=== PATIENT | female | born 1960 | race Caucasian/White ===

== ENCOUNTER 2017-04-13 12:26 | Inpatient (IN) | payer OTHER, MEDICARE ==
[~2017-04-13] VITALS: Ht 172.7 cm; Wt 75.4 kg
[~2017-04-13 12:26] MED LIST: ACCURETIC 25 MG1 TAB PO; DAYPRO600 M1 PO; EPA FISH OIL1000 MG PO; FISH OIL 1,0001 EAC4 PO; MEDROL DOSEPAK4 MG PO; METOPROLOL TAR100 M1 PO; METOPROLOL50 MG PO; NORVASC10 MG PO; OMEPRAZOLE40 MG PO; POTASSIUM99 M3 PO; PRILOSEC20 MG PO; PROAIR HFA8.5 GM INH; QUINAPRIL/HCTZ; QUINAPRIL40 MG PO; ROBAXIN750 MG PO; VICODIN ES 7501 TAB PO; VITAMIN D31000 IU PO; ZITHROMAX Z PA250 MG PO
[2017-04-13 12:46] LABS: BASO # 0.1 10*3/uL (0.0-0.1); BASO % 0.8 % (0.0-1.0); EOS # 0.1 10*3/uL (0.0-0.4); EOS % 1.1 % (1.0-4.0); HEMATOCRIT 48.4 % (37.0-47.0); HEMOGLOBIN 17.4 g/dl (12.0-16.0); LYMPH # 3.3 10*3/uL (1.3-4.4); LYMPH % 25.8 % (27.0-41.0); MEAN CELL VOLUME 88.3 fl (81.0-99.0); MEAN CORPUSCULAR HGB 31.8 pg (27.0-31.0); MEAN PLATELET VOLUME 9.7 fl (9.6-12.3); MONO % 7.8 % (3.0-9.0); NEUT # 8.1 10*3/uL (2.3-7.9); NEUT % 64.1 % (47.0-73.0); PLATELET COUNT AUTOMATED 238 10*3/uL (130-400); RED BLOOD COUNT 5.48 10*6/uL (4.10-5.10); RED CELL DISTRI WIDTH 12.2 % (0-14.5); WHITE BLOOD COUNT 12.6 10*3/uL (4.8-10.8)
[2017-04-13 12:50] VITALS: BP 163/61
[2017-04-13 12:56] LABS: ACT PARTIAL THROMBO TIME 25.7 SECONDS (20.8-31.5)
[2017-04-13 13:00] VITALS: BP 150/67
[2017-04-13 13:05] LABS: ALBUMIN 3.8 gm/dl (3.1-4.5); ALKALINE PHOSPHATASE 84 U/L (45-117); BUN 11 mg/dl (7-24); CHLORIDE 98 mmol/L (98-107); CREATININE 0.93 mg/dL (0.55-1.02); MAGNESIUM 1.5 mg/dL (1.5-2.1); POTASSIUM 3.5 mmol/L (3.5-5.1); SGOT/AST 24 IU/L (3-35); SGPT/ALT 33 U/L (12-78); SODIUM 133 mmol/L (136-145); TOTAL PROTEIN 7.3 gm/dL (6.4-8.2)
[2017-04-13 13:06] LABS: TROPONIN I 0.024 ng/ml (<0.045)
--- NOTE | 2017-04-13 14:35 | NUR ---
A 57, admitted to , under the services of RICH Avalos DO with a diagnosis of CHEST PAIN R/O AR Chief complaint is CHEST PAIN AT WORK WITH NAUSEA AND DIAPHORESIS. Patient arrived via stretcher from ER. Monitor applied. Initial assessment completed. Vital signs taken and recorded. RICH AVALOS DO notified of admission to the unit. Orders received. See assessment for past medical history, medications and allergies. Patient and/or family oriented to unit. [facility] visitation policy reviewed. GRUPO LAL
[2017-04-13] MEDS ORDERED: FISH OIL 1,0001 EAC4 PO (14:44)
[2017-04-13] MEDS ORDERED: CALCIUM CARBON600 M4 PO (14:50)
--- NOTE | 2017-04-13 15:40 | NUR ---
I notified Dr. Abarca resident with Dr. Jo that Dr. Owens had cancelled order for stress test, if they would like to reorder it. States he will review pt chart and discussed with Dr. Jo first.
[2017-04-13 16:00] VITALS: BP 152/61
--- NOTE | 2017-04-13 19:00 | NUR ---
PT ASSESSED FOR A PRN BREATHING TX. PT LUNGS ARE CLEAR. SHE WAS TOLD TO CALL RESPIRATORY IF SHE EVER FEELS SOB OR WHEEZY.
--- NOTE | 2017-04-13 19:52 | NUR ---
PATIENT RESTING IN BED WITH NO S/S OF DISTRESS. NO NEEDS MADE. BED IN LOWEST POSITION, CALL LIGHT IN REACH
[2017-04-13 20:00] VITALS: BP 138/61
--- NOTE | 2017-04-13 23:04 | NUR ---
24 HR chart check completed.
[2017-04-14] VITALS: BP 141/53
--- NOTE | 2017-04-14 01:52 | NUR ---
PATIENT RESTING IN BED WITH NO S/S OF DISTRESS. BED IN LOWEST POSITION, CALL LIGHT IN REACH
[2017-04-14 06:20] LABS: BASO # 0.1 10*3/uL (0.0-0.1); BASO % 1.3 % (0.0-1.0); EOS # 0.2 10*3/uL (0.0-0.4); HEMATOCRIT 52.7 % (37.0-47.0); HEMOGLOBIN 18.9 g/dl (12.0-16.0); LYMPH # 2.1 10*3/uL (1.3-4.4); LYMPH % 27.3 % (27.0-41.0); MEAN CELL VOLUME 89.8 fl (81.0-99.0); MEAN CORPUSCULAR HGB 32.2 pg (27.0-31.0); MEAN CORPUSCULAR HGB CONC 35.9 g/dl (33.0-37.0); MEAN PLATELET VOLUME 9.5 fl (9.6-12.3); MONO # 0.6 10*3/uL (0.1-1.0); MONO % 7.3 % (3.0-9.0); NEUT # 4.7 10*3/uL (2.3-7.9); NEUT % 60.7 % (47.0-73.0); PLATELET COUNT AUTOMATED 238 10*3/uL (130-400); RED BLOOD COUNT 5.87 10*6/uL (4.10-5.10); RED CELL DISTRI WIDTH 12.2 % (0-14.5); WHITE BLOOD COUNT 7.8 10*3/uL (4.8-10.8)
[2017-04-14 06:49] LABS: ALBUMIN 3.7 gm/dl (3.1-4.5); ALKALINE PHOSPHATASE 90 U/L (45-117); BUN 6 mg/dl (7-24); CHLORIDE 101 mmol/L (98-107); CHOLESTEROL 201 mg/dL (<200); CREATININE 0.71 mg/dL (0.55-1.02); FREE T4 1.08 ng/dl (0.76-1.46); HDL CHOLESTEROL 47 mg/dl (40-60); LDL CHOLESTEROL 116 mg/dL (9-159); MAGNESIUM 1.6 mg/dL (1.5-2.1); PHOSPHOROUS 3.3 mg/dL (2.5-4.9); POTASSIUM 3.7 mmol/L (3.5-5.1); SGOT/AST 27 IU/L (3-35); SGPT/ALT 34 U/L (12-78); SODIUM 138 mmol/L (136-145); TOTAL PROTEIN 7.7 gm/dL (6.4-8.2); TRIGLYCERIDES 191 mg/dl (<150); VLDL CHOLESTEROL 38 mg/dL (6-40)
[2017-04-14 08:00] VITALS: BP 160/65
--- NOTE | 2017-04-14 09:00 | NUR ---
Social Media Coordinator in to talk to patient. Patient states lives at home with . There are few steps in the home. Physician: none at present [facility] [place] [facility] services: none Patient's level of ADLs: INDEPENDENT Patient has working utilities: all working DME: none Follow-up physician's appointment after d/c: will be made by hospitalist nurse director upon discharge Does patient want to access PORTAL?: no Discharge plan discussed with patient, patient lies at home, is independent in adls and ambulation, patient states she will be going back home when able and denies any home needs. RITU GRIMES
[2017-04-14 10:04] LABS: VITAMIN D, 25-HYDROXY 38.2 ng/mL (30-100)
--- NOTE | 2017-04-14 10:14 | NUR ---
INFORMED CONSENT SIGNED FOR CARDIOLYTE STRESS TEST WITH DR. GARCIA. RESTING EKG SINUS BRADYCARDIA. HR 54, BP 124/74. COMPLETED 9:46 OF A STANDARD FADI PROTOCOL COMPLETING :46 OF STAGE IV, 4.2 MPH/16%. PEAK HEART RATE OF 159 ACHIEVED WHICH IS 97% PREDICTED MAXIMUM AND A PEAK BP OF 242/80. TEST TERMINATED D/T FATIGUE. PT C/O SOB. PVC'S AND NONDIAGNOSTIC ST CHANGES NOTED. HAS A GOOD EXERCISE TOLERANCE. LAST RECOVERY HR 87, BP 154/62. WAITING NUCLEAR SCANNING IN STABLE CONDITION.
--- NOTE | 2017-04-14 10:42 | NUR ---
TORADOL GIVEN PER ORDERS FOR C/O HEADACHE. WILL MONITOR.
--- NOTE | 2017-04-14 11:45 | NUR ---
TORADOL EFFECTIVE PER PT.
[2017-04-14 12:00] VITALS: BP 136/72
[2017-04-14 16:00] VITALS: BP 145/72
[2017-04-14] MEDS ORDERED: METOPROLOL TART50 M1 PO (17:10)
[2017-04-14] MEDS ORDERED: HYDR12.5C PO (17:10)
--- NOTE | 2017-04-14 17:45 | NUR ---
CCDIS Discharge instructions reviewed with patient/family. Patient receptive and verbalizes understanding. Follow-up care arranged. Written instructions given to patient/family. JOHN ARAUZ
== END 2017-04-14 17:45 | disposition home or self-care (01) | DRG 313 ==
LOC: ED 12:26 → EDHOLD 13:54 → 4E 13:54 → EDHOLD 14:09 → 4E 14:49
PROVIDERS: Emergency Medicine; Internal Medicine; ADMIT Emergency Medicine
PROC: 4A02XM4 Measurement of Cardiac Total Activity, External Approach (ICD-10-PCS; principal; 2017-04-14)
DX: R07.89 Other chest pain (principal); E87.1 Hypo-osmolality and hyponatremia; I10 Essential (primary) hypertension; E86.0 Dehydration; R73.03 Prediabetes; K21.9 Gastro-esophageal reflux disease without esophagitis; J44.9 Chronic obstructive pulmonary disease, unspecified; Z72.0 Tobacco use; Z79.899 Other long term (current) drug therapy; Z90.710 Acquired absence of both cervix and uterus; Z72.89 Other problems related to lifestyle; Z80.9 Family history of malignant neoplasm, unspecified

== ENCOUNTER → 2017-11-19 | Outpatient (CLI) | payer OTHER, MEDICARE ==
[~2017-11-19] MED LIST changes: +CALCIUM CARBON600 M4 PO; +HYDR12.5C PO; +METOPROLOL TART50 M1 PO
== END | disposition home or self-care (01) ==
LOC: MAMMO 06:46
DX: Z12.31 Encounter for screening mammogram for malignant neoplasm of breast (principal); E78.5 Hyperlipidemia, unspecified

== ENCOUNTER 2019-04-17 08:15 | Emergency (ER) | payer OTHER, MEDICARE ==
[~2019-04-17] VITALS: Ht 170.1 cm; Wt 66.2 kg
== END 2019-04-17 09:19 | disposition home or self-care (01) ==
LOC: ED 08:15
DX: S79.812A Other specified injuries of left hip, initial encounter (principal); J44.9 Chronic obstructive pulmonary disease, unspecified; K21.9 Gastro-esophageal reflux disease without esophagitis; I10 Essential (primary) hypertension; F17.200 Nicotine dependence, unspecified, uncomplicated; Z90.89 Acquired absence of other organs; Z90.710 Acquired absence of both cervix and uterus; Z98.890 Other specified postprocedural states; Z79.899 Other long term (current) drug therapy; W18.30XA Fall on same level, unspecified, initial encounter; Y93.89 Activity, other specified; Y92.098 Other place in other non-institutional residence as the place of occurrence of the external cause; Y99.9 Unspecified external cause status

== ENCOUNTER 2019-05-03 19:49 | Inpatient (IN) | payer OTHER, MEDICARE ==
[~2019-05-03] VITALS: Ht 165.1 cm; Wt 65.5 kg
--- NOTE | ~2019-05-03 | EKG ---
[place], [place] ELECTROCARDIOGRAM REPORT NAME: JOHN SKINNER UNIT #: [id number] ROOM: [facility] DOCTOR: DAMIEN DRAFT REPORT BIRTHDATE: [birth year] [facility] Test Date: 2019-05-03 Test Time: 20:25:07 Pat Name: JOHN SKINNER Department: Room: [facility] Gender: F Delineator: : 1960 Requested By: HARRISON FERRO Order Number: [id number] Reading MD: Delmi Luna MD Measurements Intervals [place] Rate: 84 P: -23 CO: 145 QRS: 56 QRSD: 95 T: 44 QT: 458 QTc: 542 Interpretive Statements Sinus rhythm Anterior infarct, acute (LAD) Prolonged QT interval Baseline wander in lead(s) II,aVF Electronically Signed On 05-04-2019 17:31:15 PDT by Delmi Luna MD CM:EKGRPT:ELECTROCARDIOGRAM REPORT 24 30 HARRISON GORDON DRAFT REPORT HARRISON FERRO DO
[2019-05-03 20:05] VITALS: BP 168/68
[2019-05-03 20:18] LABS: BASO # 0.1 10*3/uL (0.0-0.1); BASO % 0.4 % (0.0-1.0); EOS % 0.1 % (1.0-4.0); HEMATOCRIT 35.4 % (37.0-47.0); HEMOGLOBIN 13.8 g/dl (12.0-16.0); LYMPH # 1.8 10*3/uL (1.3-4.4); LYMPH % 13.1 % (27.0-41.0); MEAN CELL VOLUME 82.3 fl (81.0-99.0); MEAN CORPUSCULAR HGB 32.1 pg (27.0-31.0); MEAN PLATELET VOLUME 8.7 fl (9.6-12.3); MONO # 1.3 10*3/uL (0.1-1.0); MONO % 9.7 % (3.0-9.0); NEUT # 10.3 10*3/uL (2.3-7.9); NEUT % 76.3 % (47.0-73.0); PLATELET COUNT AUTOMATED 308 10*3/uL (130-400); RED CELL DISTRI WIDTH 10.7 % (0-14.5); WHITE BLOOD COUNT 13.5 10*3/uL (4.8-10.8)
[2019-05-03 20:34] LABS: ALBUMIN 3.8 gm/dl (3.1-4.5); ALKALINE PHOSPHATASE 79 U/L (45-117); BUN 6 mg/dl (7-24); CREATININE 0.53 mg/dL (0.55-1.02); POTASSIUM 2.5 mmol/L (3.5-5.1); SGOT/AST 53 IU/L (3-35); SGPT/ALT 36 U/L (12-78); TOTAL PROTEIN 7.4 gm/dL (6.4-8.2)
[2019-05-03 20:38] LABS: ACETAMINOPHEN (TYLENOL) < 5.0 ug/ml (10-30); CHLORIDE 73 mmol/L (98-107)
[2019-05-03 20:39] LABS: SODIUM 111 mmol/L (136-145)
--- NOTE | 2019-05-03 20:39 | NUR ---
PATIENTS SODIUM RESULT CRITICAL AT 110. ED DOC NOTIFIED.
[2019-05-03 20:42] LABS: THYROID STIM HORMONE (HS) 0.853 uIU/ml (0.358-4.75)
[2019-05-03 20:46] VITALS: BP 125/63
--- NOTE | 2019-05-03 21:54 | NUR ---
SERUM OSMO CRITICAL. NOTIFIED.
[2019-05-03 22:42] LABS: BILIRUBIN NEGATIVE (NEGATIVE); BLOOD NEGATIVE (NEGATIVE); CLARITY CLEAR (CLEAR); COLOR YELLOW (YELLOW); GLUCOSE NEGATIVE (NEGATIVE); KETONE TRACE (NEGATIVE); LEUKO ESTERASE NEGATIVE (NEGATIVE); NITRITE NEGATIVE (NEGATIVE); PH 6.5 (5.0-9.0); SPECIFIC GRAVITY <= 1.005 (1.005-1.030); UROBILINOGEN 0.2 E.U./dl (0.2-1.0)
[2019-05-03 22:49] LABS: WBC 0-2 wbc/hpf (0-5)
[2019-05-03 22:53] LABS: URINE AMPHETAMINES < 1000 (1000ng/ml); URINE BARBITURATES < 200 (200ng/ml); URINE BENZODIAZEPINES < 200 (200ng/ml); URINE CANNABINOIDS (THC) < 50 (50ng/ml); URINE COCAINE < 300 (300ng/ml); URINE METHADONE < 300 (300ng/ml); URINE OPIATES < 300 (300ng/ml); URINE PHENCYCLIDINE < 25 (25ng/ml)
[2019-05-03 23:28] VITALS: BP 130/66
[2019-05-04] VITALS (7 sets, daily range): BP systolic 101–138; BP diastolic 50–79
--- NOTE | 2019-05-04 00:15 | NUR ---
A 59 yr old female, admitted to ICCU, under the services of Dr Moura with a diagnosis of altered mental status and acute hyponatremia. Chief complaint is confusion and agitation. Patient arrived via stretcher from ER. Monitor applied. Initial assessment completed. Vital signs taken and recorded. See assessment for past medical history, medications and allergies. Patient and/or family oriented to unit. [facility] visitation policy reviewed. Clothing/patient valuable form completed. Patient arrives with rambling conversation and restlessness. IV fluids 0.9%NS at 30ml/hr and K-rider #1 infusing. Bed in low position with wheels locked. DEEJAY FOSTER
--- NOTE | 2019-05-04 01:30 | NUR ---
0100 PUTTING CALL LIGHT ON CONTINUOUSLY. TALKING INTO IT LIKE IT IS A PHONE. TALKING ABOUT A "WORKMAN'S COMP CLAIM" AND STATES "YOU NEED TO TALK TO MY MANAGER ONLINE." DOES NOT KNOW OWN BIRTHDATE OR CURRENT DAY/MONTH. DOES KNOW NAME AND ADDRESS. DOES NOT NOT HER PRESENT LOCATION. STATES "I'M GONNA PULL THIS TUBE OUT OF MY ARM. IT HURTS." ICE APPLIED TO IV SITE NICHOL - K+RUN INFUSING SLOWLY. 0110 DR. SANCHEZ CALLED FOR SOMETHING TO CALM PT. ORDERS RECEIVED. 0120 ATIVAN 1MG IV GIVEN FOR AGITATION AND RESTLESSNESS. VOIDED LARGE AMOUNT CLEAR YELLOW URINE ON BEDPAN. REQUESTING "VICODAN" OR "FLEXERIL" OR "ATIVAN". MULTIPLE ATTEMPTS MADE TO RE-ORIENT PT. INEFFECTIVE. C/O FEELING COLD, THEN TOO HOT. 0130 EARLIER ATIVAN APPEARS EFFECTIVE. RESTING IN BED WITH EYES CLOSED. APPEARS TO BE SLEEPING. SIDE RAILS UP X'S 2. BED ALARM INTACT. WILL CONT TO MONITOR.
--- NOTE | 2019-05-04 01:40 | NUR ---
UNABLE TO DO MED REC DUE TO PT CONFUSION. NO FAMILY WITH PT AND NO MED LIST WITH PT.
[2019-05-04 02:17] LABS: BUN 6 mg/dl (7-24); CHLORIDE 78 mmol/L (98-107); CREATININE 0.51 mg/dL (0.55-1.02)
[2019-05-04 02:18] LABS: SODIUM 117 mmol/L (136-145)
--- NOTE | 2019-05-04 02:24 | NUR ---
DR. SANCHEZ NOTIFIED OF RECENT BLOOD WORK RESULTS. ORDERS RECEIVED. IV FLUIDS DC'ED. PT CONT TO REST WITH EYES CLOSED.
--- NOTE | 2019-05-04 02:33 | NUR ---
DR. SANCHEZ CALLED DR. STEIN TO DISCUSS PT BLOOD WORK.
--- NOTE | 2019-05-04 04:41 | NUR ---
PT INCONTINENT OF LARGE AMOUNT URINE. OMAR CARE DONE AND LINENS CHANGED. REMAINS CONFUSED, SPEECH GARBLED.
--- NOTE | 2019-05-04 06:08 | NUR ---
WILL AWAKEN TO VOICE. RESTING IN BED WITH EYES CLOSED AT PRESENT TIME. APPEARS TO BE SLEEPING. HEP LOCK INTACT. NO DISTRESS NOTED. BED ALARM REMAINS INTACT. CONDITION GUARDED.
[2019-05-04 06:26] LABS: BUN 7 mg/dl (7-24); CHLORIDE 82 mmol/L (98-107); CREATININE 0.57 mg/dL (0.55-1.02); POTASSIUM 3.5 mmol/L (3.5-5.1)
[2019-05-04 06:30] LABS: PHOSPHOROUS 3.3 mg/dL (2.5-4.9)
[2019-05-04 06:31] LABS: SODIUM 117 mmol/L (136-145)
--- NOTE | 2019-05-04 06:34 | NUR ---
DR. SANCHEZ NOTIFIED OF LABS.
[2019-05-04 06:55] LABS: HEMATOCRIT 33.7 % (37.0-47.0); MEAN CELL VOLUME 83.6 fl (81.0-99.0); MEAN CORPUSCULAR HGB 32.3 pg (27.0-31.0); MEAN PLATELET VOLUME 9.4 fl (9.6-12.3); PLATELET COUNT AUTOMATED 281 10*3/uL (130-400); RED BLOOD COUNT 4.03 10*6/uL (4.10-5.10); RED CELL DISTRI WIDTH 10.7 % (0-14.5); WHITE BLOOD COUNT 6.3 10*3/uL (4.8-10.8)
[2019-05-04 06:58] LABS: MEAN CORPUSCULAR HGB CONC 38.6 g/dl (33.0-37.0)
[2019-05-04 07:38] LABS: ATYPICAL LYMPHS 2 % (0-0); PLATELET SUFFICIENCY NORMAL (NORMAL); TOTAL CELLS COUNTED 100 #CELLS
--- NOTE | 2019-05-04 09:48 | NUR ---
PT AWAKE AND ALERT AT THIS TIME. PT WANTS TO GO HOME STATING THIS IS HER ONLY DAY OFF AND SHE HAS "STUFF TO DO". I EXPLAINED TO PT WHY SHE WAS ADMITTED AND THE IMPORTANCE OF STAYING FOR COMPLETE TREATMENT. HER BOYFRIEND IS AT BEDSIDE AND ENCOURAGING PT TO STAY FOR TREATMENT. PT WILLING TO STAY TO TALK WITH
[2019-05-04 10:14] LABS: BUN 7 mg/dl (7-24); CHLORIDE 82 mmol/L (98-107); CREATININE 0.68 mg/dL (0.55-1.02); POTASSIUM 3.6 mmol/L (3.5-5.1)
[2019-05-04 10:29] LABS: SODIUM 118 mmol/L (136-145)
--- NOTE | 2019-05-04 10:32 | NUR ---
DR REYNA NOTIFIED OF NA LEVEL OF 118.
--- NOTE | 2019-05-04 13:19 | NUR ---
DR STEIN IN TO SEE PT.
[2019-05-04] MEDS ORDERED: ACCUPRIL20 MG PO (14:11)
[2019-05-04] MEDS ORDERED: LOPRESSOR100 M1 PO (14:14)
--- NOTE | 2019-05-04 14:44 | NUR ---
Planer Operator in to talk to patient. Patient states lives at HOME with BOYFRIEND. There are FEW steps in the home. Physician: Jacquelin ORR [facility]acy: [facility] [place] health services: NONE Patient's level of ADLs: INDEPENDENT Patient has working utilities: YES DME: NONE Follow-up physician's appointment after d/c: WILL BE MADE BY HOSPITALIST NURSE DIRECTOR ON DISCHARGE Does patient want to access PORTAL?: NO Discharge plan PT LIVES AT HOME WITH BOYFRIEND AND PLANS TO RETURN HOME WHEN MEDICALLY STABLE. DENIES ANY NEEDS. WILL CONTINUE TO FOLLOW. WILL HAVE A RIDE HOME PER PT.. IJEOMA ALANIS
--- NOTE | 2019-05-04 19:17 | NUR ---
ATTEMPTED TO CALL DR STEIN REGARDING SODIUM LEVEL ON LABS PER REQUEST. NO ANSWER. WILL RETRY.
--- NOTE | 2019-05-04 19:20 | NUR ---
Shift chart check completed.24 HR chart check completed.
--- NOTE | 2019-05-04 19:38 | NUR ---
AGAIN ATTEMPTED TO CONTACT DR STEIN, NO ANSWER, WILL RETRY
--- NOTE | 2019-05-04 19:52 | NUR ---
SPOKE WITH DR STEIN REGARDING SODIUM, ORDER TO REPEAT SODIUM LEVEL IN THE MORING AND CALL IF LEVEL CHANGES.
--- NOTE | 2019-05-04 19:53 | NUR ---
DR STEIN CALLED BACK AND NOW WANTS STAT SODIUM LEVEL AT 11PM AND RN IS TO CALL RESULTS TO HER. ORDER PLACED.
[2019-05-04 23:22] LABS: ALBUMIN 3.6 gm/dl (3.1-4.5); ALKALINE PHOSPHATASE 78 U/L (45-117); BUN 11 mg/dl (7-24); CHLORIDE 87 mmol/L (98-107); CREATININE 0.67 mg/dL (0.55-1.02); POTASSIUM 3.6 mmol/L (3.5-5.1); SGOT/AST 33 IU/L (3-35); SGPT/ALT 32 U/L (12-78); SODIUM 122 mmol/L (136-145); TOTAL PROTEIN 6.9 gm/dL (6.4-8.2)
[2019-05-05] VITALS: BP 123/69
[2019-05-05 04:00] VITALS: BP 128/68
[2019-05-05 06:26] LABS: ALBUMIN 3.4 gm/dl (3.1-4.5); ALKALINE PHOSPHATASE 73 U/L (45-117); BUN 8 mg/dl (7-24); CHLORIDE 86 mmol/L (98-107); CREATININE 0.57 mg/dL (0.55-1.02); PHOSPHOROUS 3.2 mg/dL (2.5-4.9); POTASSIUM 3.3 mmol/L (3.5-5.1); SGOT/AST 29 IU/L (3-35); SGPT/ALT 33 U/L (12-78); SODIUM 124 mmol/L (136-145); TOTAL PROTEIN 6.8 gm/dL (6.4-8.2)
[2019-05-05 07:11] LABS: BASO # 0.1 10*3/uL (0.0-0.1); BASO % 1.2 % (0.0-1.0); EOS # 0.1 10*3/uL (0.0-0.4); EOS % 1.3 % (1.0-4.0); HEMATOCRIT 36.5 % (37.0-47.0); HEMOGLOBIN 13.7 g/dl (12.0-16.0); LYMPH # 2.1 10*3/uL (1.3-4.4); LYMPH % 27.8 % (27.0-41.0); MEAN CELL VOLUME 86.1 fl (81.0-99.0); MEAN CORPUSCULAR HGB 32.3 pg (27.0-31.0); MEAN PLATELET VOLUME 9.1 fl (9.6-12.3); MONO # 0.9 10*3/uL (0.1-1.0); MONO % 12.4 % (3.0-9.0); NEUT # 4.3 10*3/uL (2.3-7.9); NEUT % 56.9 % (47.0-73.0); PLATELET COUNT AUTOMATED 284 10*3/uL (130-400); RED BLOOD COUNT 4.24 10*6/uL (4.10-5.10); RED CELL DISTRI WIDTH 11.1 % (0-14.5); WHITE BLOOD COUNT 7.6 10*3/uL (4.8-10.8)
[2019-05-05 07:15] LABS: MEAN CORPUSCULAR HGB CONC 37.5 g/dl (33.0-37.0)
[2019-05-05 08:00] VITALS: BP 128/58
--- NOTE | 2019-05-05 08:24 | NUR ---
Awakened for VS. Assisted to BSC. Steady to stand. Wearing wrist supports , states has carpal tunnel and hands are numb.
--- NOTE | 2019-05-05 13:13 | NUR ---
PT HAS NO NEEDS ON DISCHARGE. WILL CONTINUE TO FOLLOW.
[2019-05-05 16:00] VITALS: BP 118/93
--- NOTE | 2019-05-05 21:14 | NUR ---
RECEIVED CALL FROM DR STEIN, WANTS STAT SODIUM ORDERED AND CALLED WITH RESULTS.
[2019-05-06] VITALS: BP 126/62
--- NOTE | 2019-05-06 04:12 | NUR ---
PATIENT REQUESTING MEDICATION FOR HEADACHE. TYLENOL ADMINISTERED PRESCRIBED. WILL MONITOR FOR EFFECTIVENESS.
--- NOTE | 2019-05-06 04:32 | NUR ---
24 HR chart check completed.
--- NOTE | 2019-05-06 05:15 | NUR ---
PATIENT STATES THAT TYLENOL WAS EFFECTIVE FOR HEADACHE.
[2019-05-06 06:02] LABS: BASO # 0.1 10*3/uL (0.0-0.1); BASO % 1.2 % (0.0-1.0); EOS # 0.1 10*3/uL (0.0-0.4); EOS % 1.4 % (1.0-4.0); HEMATOCRIT 33.9 % (37.0-47.0); HEMOGLOBIN 12.3 g/dl (12.0-16.0); LYMPH # 2.1 10*3/uL (1.3-4.4); LYMPH % 32.3 % (27.0-41.0); MEAN CELL VOLUME 87.8 fl (81.0-99.0); MEAN CORPUSCULAR HGB 31.9 pg (27.0-31.0); MEAN CORPUSCULAR HGB CONC 36.3 g/dl (33.0-37.0); MEAN PLATELET VOLUME 9.2 fl (9.6-12.3); MONO # 0.6 10*3/uL (0.1-1.0); MONO % 9.4 % (3.0-9.0); NEUT # 3.7 10*3/uL (2.3-7.9); NEUT % 55.4 % (47.0-73.0); PLATELET COUNT AUTOMATED 280 10*3/uL (130-400); RED BLOOD COUNT 3.86 10*6/uL (4.10-5.10); RED CELL DISTRI WIDTH 10.9 % (0-14.5); WHITE BLOOD COUNT 6.6 10*3/uL (4.8-10.8)
[2019-05-06 06:07] LABS: BUN 10 mg/dl (7-24); CHLORIDE 95 mmol/L (98-107); CREATININE 0.69 mg/dL (0.55-1.02); POTASSIUM 3.9 mmol/L (3.5-5.1); SODIUM 128 mmol/L (136-145)
[2019-05-06 08:00] VITALS: BP 133/63
[2019-05-06] MEDS ORDERED: ATIVAN0.5 MG PO (09:14)
--- NOTE | 2019-05-06 09:47 | NUR ---
Medication list updated. Pt had list with here. Dr. Esposito had inquired about her HCTZ, I spoke with Madeline YANG who had last updated the med rec and she states that pt told her she no longer takes it at home.
--- NOTE | 2019-05-06 12:32 | NUR ---
PT CONTINUES TO STATE SHE WANTS TO GO HOME ON DISCHARGE AND WILL HAVE NO NEEDS. WILL CONTINUE TO FOLLOW.
--- NOTE | 2019-05-06 13:23 | NUR ---
Medicated with tylenol per prn order for complaints of headache. States pain at temples. States pain is mild at this time but she doesn't want to get any worse.
--- NOTE | 2019-05-06 14:15 | NUR ---
States that tylenol effective.
[2019-05-06 16:00] VITALS: BP 137/72
--- NOTE | 2019-05-06 17:04 | NUR ---
Notified Dr. Casiano of NA result of 127. New orders received for NS at 30 cc/hr x [address] Casiano requested stat NA recheck after fluids infused and to call results.
--- NOTE | 2019-05-06 17:20 | NUR ---
IVF NS started at this time per orders at 30 cc/hr. Next sodium ordered for 2119 this evening.
--- NOTE | 2019-05-06 20:52 | NUR ---
SPOKE WITH DR STEIN REGARDING SODIUM LEVL, INFORMED DR THAT LAB WAS NOT BACK YET, WILL RETURN CALL WHEN LAB IS BACK.
--- NOTE | 2019-05-06 22:30 | NUR ---
TWO ATTEMPTS TO CALL DR. STEIN WITH SODIUM LEVEL.
[2019-05-07] VITALS: BP 132/63
--- NOTE | 2019-05-07 00:59 | NUR ---
NORMAL SALINE RESUMED AT 30 CC/HR X 4 HOURS. SODIUM TO BE RECHECKED AT [address] STEIN TO BE CALLED WITH RESULTS.
[2019-05-07 07:20] LABS: BASO # 0.1 10*3/uL (0.0-0.1); BASO % 1.2 % (0.0-1.0); EOS # 0.1 10*3/uL (0.0-0.4); HEMATOCRIT 36.6 % (37.0-47.0); HEMOGLOBIN 13.4 g/dl (12.0-16.0); LYMPH # 1.8 10*3/uL (1.3-4.4); LYMPH % 26.8 % (27.0-41.0); MEAN CELL VOLUME 88.2 fl (81.0-99.0); MEAN CORPUSCULAR HGB 32.3 pg (27.0-31.0); MEAN CORPUSCULAR HGB CONC 36.6 g/dl (33.0-37.0); MEAN PLATELET VOLUME 9.1 fl (9.6-12.3); MONO # 0.6 10*3/uL (0.1-1.0); NEUT # 4.2 10*3/uL (2.3-7.9); NEUT % 61.6 % (47.0-73.0); PLATELET COUNT AUTOMATED 303 10*3/uL (130-400); RED BLOOD COUNT 4.15 10*6/uL (4.10-5.10); RED CELL DISTRI WIDTH 10.9 % (0-14.5); WHITE BLOOD COUNT 6.9 10*3/uL (4.8-10.8)
[2019-05-07 07:45] LABS: ALBUMIN 3.4 gm/dl (3.1-4.5); ALKALINE PHOSPHATASE 66 U/L (45-117); BUN 7 mg/dl (7-24); CHLORIDE 97 mmol/L (98-107); CREATININE 0.63 mg/dL (0.55-1.02); POTASSIUM 3.9 mmol/L (3.5-5.1); SGOT/AST 18 IU/L (3-35); SGPT/ALT 31 U/L (12-78); SODIUM 133 mmol/L (136-145); TOTAL PROTEIN 6.7 gm/dL (6.4-8.2)
[2019-05-07 08:00] VITALS: BP 131/57
--- NOTE | 2019-05-07 12:49 | NUR ---
PHYSICAL THERAPY PT SCREEN COMPLETED : NO PT SERVICES INDICATED AT THIS TIME. PATIENT IS (I) IN ROOM WITHOUT AD. THANK YOU FOR REFERRAL FIOR MCKENZIE PT
--- NOTE | 2019-05-07 14:52 | NUR ---
REFUSES KNEE XRAYS
--- NOTE | 2019-05-07 15:30 | NUR ---
PATIENT FRUSTRATEDT THAT SHE WAS NOT DISCHARGED TODAY AND DID NOT WANT XRAYS DONE OF HER KNEE. PATIENT IS REQUESTING THAT SHE BE DISCHARGED, PRIOR NURSE DISCUSSED PATIENTS WANTS WITH , DOCTOR SATTES SHE WILL NOT BE DISCHARGED. PATIENT STATED DISTASTE, BUT STATED SHE WILL STAY ANOTHER NIGHT.
[2019-05-07 16:00] VITALS: BP 155/74
[2019-05-07 20:00] VITALS: BP 138/60
--- NOTE | 2019-05-08 00:30 | NUR ---
C/O GERD SYMPTOMS CALLED DR. SANCHEZ AND NOTIFIED HIM OF THIS AND ORDERS TO BE RECIEVED.
[2019-05-08 06:58] LABS: BASO # 0.1 10*3/uL (0.0-0.1); BASO % 1.3 % (0.0-1.0); EOS # 0.2 10*3/uL (0.0-0.4); EOS % 2.3 % (1.0-4.0); HEMATOCRIT 36.3 % (37.0-47.0); LYMPH # 1.9 10*3/uL (1.3-4.4); LYMPH % 27.9 % (27.0-41.0); MEAN CELL VOLUME 88.8 fl (81.0-99.0); MEAN CORPUSCULAR HGB 31.8 pg (27.0-31.0); MEAN CORPUSCULAR HGB CONC 35.8 g/dl (33.0-37.0); MEAN PLATELET VOLUME 8.6 fl (9.6-12.3); MONO # 0.5 10*3/uL (0.1-1.0); MONO % 6.6 % (3.0-9.0); NEUT # 4.2 10*3/uL (2.3-7.9); NEUT % 61.6 % (47.0-73.0); PLATELET COUNT AUTOMATED 290 10*3/uL (130-400); RED BLOOD COUNT 4.09 10*6/uL (4.10-5.10); WHITE BLOOD COUNT 6.9 10*3/uL (4.8-10.8)
[2019-05-08 07:26] LABS: ALBUMIN 3.4 gm/dl (3.1-4.5); ALKALINE PHOSPHATASE 62 U/L (45-117); BUN 6 mg/dl (7-24); CHLORIDE 101 mmol/L (98-107); CREATININE 0.73 mg/dL (0.55-1.02); POTASSIUM 4.6 mmol/L (3.5-5.1); SGOT/AST 18 IU/L (3-35); SGPT/ALT 33 U/L (12-78); SODIUM 135 mmol/L (136-145); TOTAL PROTEIN 6.6 gm/dL (6.4-8.2)
[2019-05-08 08:00] VITALS: BP 145/82
--- NOTE | 2019-05-08 11:50 | NUR ---
PATIENT DISCHARGED AT THIS TIME TO HOME. ALL INSTRUCTIONS EXPLAINED TO PATIENT TO HER SATISFACTION, SCRIPT FOR BLOOD WORK GIVEN TO PATIENT AND A RETURN TO WORK SLIP. IV REMOVED FROM LEFT FOREARM. PATIENT WAS NON-MONITORED. PATIENT LEFT AMBULATORY WITH SON AT THIS TIME. ALL DISCHARGE PAPERWORK GIVEN TO PATIENT.
== END 2019-05-08 11:50 | disposition home or self-care (01) | DRG 640 ==
LOC: ED 19:49 → ICCU 22:32 → EDHOLD 22:32 → ICCU 23:27 → 4E 05-05 14:34
PROVIDERS: Emergency Medicine; Hospitalist; Internal Medicine Nephrology; Student in an Organized Health Care Education/Training Program; ADMIT Internal Medicine
DX: E87.1 Hypo-osmolality and hyponatremia (principal); G93.41 Metabolic encephalopathy; D72.829 Elevated white blood cell count, unspecified; E87.6 Hypokalemia; E87.8 Other disorders of electrolyte and fluid balance, not elsewhere classified; R73.9 Hyperglycemia, unspecified; R74.0 Nonspecific elevation of levels of transaminase and lactic acid dehydrogenase [LDH]; F17.210 Nicotine dependence, cigarettes, uncomplicated; K21.9 Gastro-esophageal reflux disease without esophagitis; R73.03 Prediabetes; I10 Essential (primary) hypertension; T50.2X5A Adverse effect of carbonic-anhydrase inhibitors, benzothiadiazides and other diuretics, initial encounter; J44.9 Chronic obstructive pulmonary disease, unspecified; R26.81 Unsteadiness on feet; E78.5 Hyperlipidemia, unspecified; E66.3 Overweight; F10.10 Alcohol abuse, uncomplicated; Z72.89 Other problems related to lifestyle; Z98.891 History of uterine scar from previous surgery; Z90.710 Acquired absence of both cervix and uterus; Z90.722 Acquired absence of ovaries, bilateral; Z80.9 Family history of malignant neoplasm, unspecified; Y92.89 Other specified places as the place of occurrence of the external cause; Z68.24 Body mass index [BMI] 24.0-24.9, adult

== ENCOUNTER → 2019-05-17 | Outpatient (CLI) | payer OTHER, MEDICARE ==
[~2019-05-17] MED LIST changes: +ACCUPRIL20 MG PO; +ATIVAN0.5 MG PO; +LOPRESSOR100 M1 PO
[2019-05-17 08:05] LABS: ALBUMIN 3.9 gm/dl (3.1-4.5); ALKALINE PHOSPHATASE 70 U/L (45-117); BUN 8 mg/dl (7-24); CHLORIDE 108 mmol/L (98-107); CREATININE 0.72 mg/dL (0.55-1.02); POTASSIUM 4.3 mmol/L (3.5-5.1); SGOT/AST 19 IU/L (3-35); SGPT/ALT 30 U/L (12-78); SODIUM 139 mmol/L (136-145); TOTAL PROTEIN 7.8 gm/dL (6.4-8.2)
== END | disposition home or self-care (01) ==
LOC: LAB 07:19
PROVIDERS: Student in an Organized Health Care Education/Training Program
DX: E87.1 Hypo-osmolality and hyponatremia (principal)

== ENCOUNTER → 2019-05-18 | Outpatient (CLI) | payer OTHER, MEDICARE | END | disposition home or self-care (01) | LOC: RESCLI 00:22 | DX: K21.9 Gastro-esophageal reflux disease without esophagitis (principal); J44.9 Chronic obstructive pulmonary disease, unspecified; E78.5 Hyperlipidemia, unspecified; I10 Essential (primary) hypertension; E66.3 Overweight; R73.09 Other abnormal glucose; Z72.0 Tobacco use; Z71.6 Tobacco abuse counseling; Z79.899 Other long term (current) drug therapy ==

== ENCOUNTER 2019-05-27 07:53 | Emergency (ER) | payer OTHER, MEDICARE ==
[~2019-05-27] VITALS: Ht 170.1 cm; Wt 64.4 kg
--- NOTE | ~2019-05-27 | EKG ---
[place], [place] ELECTROCARDIOGRAM REPORT NAME: JOHN SKINNER UNIT #: [id number] ROOM: DOCTOR: DAMIEN DRAFT REPORT BIRTHDATE: [address] [facility] Test Date: 2019-05-27 Test Time: 08:03:25 Pat Name: JOHN SKINNER Department: ED Room: Gender: F Blood Bank Supervisor: KADY : 1960 Requested By: RICH GATES Order Number: [id number] Reading MD: Caesar Bear MD Measurements Intervals [place] Rate: 77 P: -18 VT: 132 QRS: 91 QRSD: 93 T: 15 QT: 385 QTc: 436 Interpretive Statements Sinus rhythm Borderline right axis deviation Borderline ST depression, anterolateral leads Baseline wander in lead(s) II,III,aVR,aVF,V2,V3,V4,V5,V6 Compared to ECG 05/03/2019 20:25:07 ST (T wave) deviation now present Myocardial infarct finding no longer present Prolonged QT interval no longer present Electronically Signed On 05-30-2019 9:59:32 PST by Caesar Bear MD CM:EKGRPT:ELECTROCARDIOGRAM REPORT [id number] RICH GORDON DRAFT REPORT RICH GATES DO
[2019-05-27 08:35] LABS: BASO # 0.1 10*3/uL (0.0-0.1); BASO % 0.9 % (0.0-1.0); EOS # 0.1 10*3/uL (0.0-0.4); EOS % 0.7 % (1.0-4.0); HEMATOCRIT 40.4 % (37.0-47.0); HEMOGLOBIN 14.5 g/dl (12.0-16.0); LYMPH % 18.8 % (27.0-41.0); MEAN CELL VOLUME 88.6 fl (81.0-99.0); MEAN CORPUSCULAR HGB 31.8 pg (27.0-31.0); MEAN CORPUSCULAR HGB CONC 35.9 g/dl (33.0-37.0); MEAN PLATELET VOLUME 9.5 fl (9.6-12.3); MONO # 0.6 10*3/uL (0.1-1.0); MONO % 5.9 % (3.0-9.0); NEUT # 7.9 10*3/uL (2.3-7.9); NEUT % 73.3 % (47.0-73.0); PLATELET COUNT AUTOMATED 318 10*3/uL (130-400); RED BLOOD COUNT 4.56 10*6/uL (4.10-5.10); RED CELL DISTRI WIDTH 11.8 % (0-14.5); WHITE BLOOD COUNT 10.8 10*3/uL (4.8-10.8)
[2019-05-27 08:46] LABS: ACT PARTIAL THROMBO TIME 24.9 SECONDS (20.0-32.1); INTERNATIONAL NORM RATIO 0.9 (2.0-3.5)
[2019-05-27 08:51] LABS: ALBUMIN 4.1 gm/dl (3.1-4.5); ALKALINE PHOSPHATASE 78 U/L (45-117); BUN 12 mg/dl (7-24); CHLORIDE 102 mmol/L (98-107); LIPASE 95 U/L (73-393); POTASSIUM 3.3 mmol/L (3.5-5.1); SGOT/AST 19 IU/L (3-35); SGPT/ALT 30 U/L (12-78); SODIUM 135 mmol/L (136-145); TOTAL PROTEIN 7.5 gm/dL (6.4-8.2); TROPONIN I 0.022 ng/ml (<0.045)
[2019-05-27 09:20] LABS: BILIRUBIN NEGATIVE (NEGATIVE); BLOOD 3+ (NEGATIVE); CLARITY SL CLOUDY (CLEAR); COLOR YELLOW (YELLOW); GLUCOSE NEGATIVE (NEGATIVE); KETONE NEGATIVE (NEGATIVE); LEUKO ESTERASE NEGATIVE (NEGATIVE); NITRITE NEGATIVE (NEGATIVE); SPECIFIC GRAVITY <= 1.005 (1.005-1.030); UROBILINOGEN 0.2 E.U./dl (0.2-1.0)
[2019-05-27 09:36] LABS: MUCOUS TRACE; RBC TNTC rbc/hpf (0-2)
== END 2019-05-27 09:58 | disposition home or self-care (01) ==
LOC: ED 07:53
PROVIDERS: Emergency Medicine
DX: I10 Essential (primary) hypertension (principal); E78.00 Pure hypercholesterolemia, unspecified; J44.9 Chronic obstructive pulmonary disease, unspecified; K21.9 Gastro-esophageal reflux disease without esophagitis; R79.1 Abnormal coagulation profile; F17.200 Nicotine dependence, unspecified, uncomplicated; Z79.899 Other long term (current) drug therapy

== ENCOUNTER 2019-06-01 10:39 | Emergency (ER) | payer OTHER, MEDICARE ==
[~2019-06-01] VITALS: Ht 170.1 cm; Wt 63.5 kg
[2019-06-01] MEDS ORDERED: ROBAXIN-750750 MG PO (11:58)
[2019-06-01] MEDS ORDERED: PREDNISONE20 M1 PO (11:58)
== END 2019-06-01 12:58 | disposition hospice, home (50) ==
LOC: ED 10:39
DX: M54.16 Radiculopathy, lumbar region (principal); M54.2 Cervicalgia; M79.604 Pain in right leg; M79.605 Pain in left leg; R20.0 Anesthesia of skin; R20.2 Paresthesia of skin; I10 Essential (primary) hypertension; E78.5 Hyperlipidemia, unspecified; E78.00 Pure hypercholesterolemia, unspecified; F17.200 Nicotine dependence, unspecified, uncomplicated; Z79.899 Other long term (current) drug therapy

== ENCOUNTER → 2019-07-12 | Outpatient (CLI) | payer OTHER, MEDICARE ==
[~2019-07-12] MED LIST changes: +PREDNISONE20 M1 PO; +ROBAXIN-750750 MG PO
[2019-07-12 08:58] LABS: ALBUMIN 4.1 gm/dl (3.1-4.5); ALKALINE PHOSPHATASE 110 U/L (45-117); BUN 15 mg/dl (7-24); CHLORIDE 104 mmol/L (98-107); CHOLESTEROL 270 mg/dL (<200); HDL CHOLESTEROL 56 mg/dl (40-60); LDL CHOLESTEROL 177 mg/dL (9-159); POTASSIUM 3.9 mmol/L (3.5-5.1); SGOT/AST 18 IU/L (3-35); SGPT/ALT 30 U/L (12-78); SODIUM 138 mmol/L (136-145); TOTAL PROTEIN 7.9 gm/dL (6.4-8.2); TRIGLYCERIDES 183 mg/dl (<150); VLDL CHOLESTEROL 37 mg/dL (6-40)
== END | disposition home or self-care (01) ==
LOC: LAB 07:55
PROVIDERS: Student in an Organized Health Care Education/Training Program
DX: E78.5 Hyperlipidemia, unspecified (principal); I10 Essential (primary) hypertension

== ENCOUNTER → 2019-07-15 | Outpatient (CLI) | payer OTHER, MEDICARE | END | disposition home or self-care (01) | LOC: RESCLI 01:32 | DX: I10 Essential (primary) hypertension (principal); E55.9 Vitamin D deficiency, unspecified; K21.9 Gastro-esophageal reflux disease without esophagitis; M62.838 Other muscle spasm; Z78.9 Other specified health status; Z72.0 Tobacco use; Z71.6 Tobacco abuse counseling; Z98.890 Other specified postprocedural states; Z79.899 Other long term (current) drug therapy; Z90.710 Acquired absence of both cervix and uterus ==

== ENCOUNTER → 2020-02-02 | Outpatient (CLI) | payer OTHER, MEDICARE ==
[~2020-02-02] MED LIST changes: +AMLODIPINE BESY10 MG PO; +BUSPIRONE HCL10 MG PO; +LISINOPRIL20 MG PO; +PRAVASTATIN SOD40 MG PO; +VITAMIN D350 MC1 PO
== END | disposition home or self-care (01) ==
LOC: MAMMO 08:25
DX: Z12.31 Encounter for screening mammogram for malignant neoplasm of breast (principal)

== ENCOUNTER → 2020-02-08 | Outpatient (CLI) | payer OTHER, MEDICARE | END | disposition home or self-care (01) | LOC: COVID19 00:20 | DX: Z01.818 Encounter for other preprocedural examination (principal); Z11.59 Encounter for screening for other viral diseases ==

== ENCOUNTER → 2020-02-13 | Day surgery (SDC) | payer OTHER, MEDICARE ==
[~2020-02-13] VITALS: Ht 170.1 cm; Wt 77.1 kg
[2020-02-13 07:37] VITALS: BP 145/72
[2020-02-13 09:10] VITALS: BP 106/61
[2020-02-13 09:25] VITALS: BP 127/55
[2020-02-13 09:41] VITALS: BP 99/74
== END | disposition home or self-care (01) ==
LOC: SDC 02-09 09:30
DX: Z12.11 Encounter for screening for malignant neoplasm of colon (principal); D12.2 Benign neoplasm of ascending colon; D12.4 Benign neoplasm of descending colon; D12.5 Benign neoplasm of sigmoid colon; I10 Essential (primary) hypertension; J44.9 Chronic obstructive pulmonary disease, unspecified; K21.9 Gastro-esophageal reflux disease without esophagitis; F41.9 Anxiety disorder, unspecified; Z86.010 Personal history of colon polyps; Z80.0 Family history of malignant neoplasm of digestive organs; Z87.891 Personal history of nicotine dependence; Z98.890 Other specified postprocedural states

== ENCOUNTER → 2021-03-25 | Outpatient (CLI) | payer OTHER, MEDICARE | END | disposition home or self-care (01) | LOC: MAMMO 07:51 | PROVIDERS: ATTEND Physician Assistant | DX: Z12.31 Encounter for screening mammogram for malignant neoplasm of breast (principal) ==

== ENCOUNTER → 2021-05-03 | Outpatient (CLI) | payer OTHER, MEDICARE | END | disposition home or self-care (01) | LOC: RAD 11:08 | PROVIDERS: ATTEND Physician Assistant | DX: M50.322 Other cervical disc degeneration at C5-C6 level (principal); M43.22 Fusion of spine, cervical region ==

== ENCOUNTER 2021-08-11 18:11 | Emergency (ER) | payer OTHER, MEDICARE ==
[~2021-08-11] VITALS: Ht 170.1 cm; Wt 81.6 kg
[2021-08-11 18:58] LABS: BASO % 0.5 % (0.0-1.0); EOS # 0.1 10*3/uL (0.0-0.4); EOS % 1.1 % (1.0-4.0); HEMATOCRIT 45.5 % (37.0-47.0); LYMPH # 1.3 10*3/uL (1.3-4.4); LYMPH % 19.5 % (27.0-41.0); MEAN CORPUSCULAR HGB 30.5 pg (27.0-31.0); MEAN CORPUSCULAR HGB CONC 34.3 g/dl (33.0-37.0); MEAN PLATELET VOLUME 10.9 fl (9.6-12.3); MONO # 0.8 10*3/uL (0.1-1.0); MONO % 13.1 % (3.0-9.0); NEUT # 4.2 10*3/uL (2.3-7.9); NEUT % 65.5 % (47.0-73.0); PLATELET COUNT AUTOMATED 155 10*3/uL (130-400); RED BLOOD COUNT 5.11 10*6/uL (4.10-5.10); RED CELL DISTRI WIDTH 12.5 % (0-14.5); WHITE BLOOD COUNT 6.4 10*3/uL (4.8-10.8)
[2021-08-11 19:15] LABS: ALBUMIN 2.8 gm/dl (3.1-4.5); ALKALINE PHOSPHATASE 78 U/L (45-117); BUN 11 mg/dl (7-24); CHLORIDE 105 mmol/L (98-107); CREATININE 0.76 mg/dL (0.55-1.02); SGOT/AST 26 IU/L (3-35); SGPT/ALT 31 U/L (12-78); SODIUM 137 mmol/L (136-145)
== END 2021-08-11 20:20 | disposition home or self-care (01) ==
LOC: ED 18:11
PROVIDERS: Physician Assistant
DX: U07.1 COVID-19 (principal); F17.200 Nicotine dependence, unspecified, uncomplicated; Z79.899 Other long term (current) drug therapy; Z90.710 Acquired absence of both cervix and uterus; Z98.51 Tubal ligation status; Z98.890 Other specified postprocedural states

== ENCOUNTER 2021-08-14 16:25 | Inpatient (IN) | payer OTHER, MEDICARE ==
[~2021-08-14] VITALS: Ht 170.1 cm; Wt 85.1 kg
[2021-08-14] VITALS (11 sets, daily range): BP systolic 73–105; BP diastolic 39–58
[2021-08-14 17:48] LABS: BASO # 0.1 10*3/uL (0.0-0.1); BASO % 0.5 % (0.0-1.0); EOS % 0.1 % (1.0-4.0); HEMATOCRIT 53.7 % (37.0-47.0); LYMPH # 1.8 10*3/uL (1.3-4.4); LYMPH % 16.1 % (27.0-41.0); MEAN CELL VOLUME 89.4 fl (81.0-99.0); MEAN CORPUSCULAR HGB 29.8 pg (27.0-31.0); MEAN CORPUSCULAR HGB CONC 33.3 g/dl (33.0-37.0); MEAN PLATELET VOLUME 11.6 fl (9.6-12.3); MONO # 1.1 10*3/uL (0.1-1.0); MONO % 10.4 % (3.0-9.0); NEUT # 7.9 10*3/uL (2.3-7.9); NEUT % 72.3 % (47.0-73.0); PLATELET COUNT AUTOMATED 147 10*3/uL (130-400); RED BLOOD COUNT 6.01 10*6/uL (4.10-5.10); RED CELL DISTRI WIDTH 13.6 % (0-14.5); WHITE BLOOD COUNT 10.9 10*3/uL (4.8-10.8)
[2021-08-14 18:06] LABS: ALBUMIN 2.2 gm/dl (3.1-4.5); CREATININE 3.08 mg/dL (0.55-1.02); POTASSIUM 4.5 mmol/L (3.5-5.1); TOTAL PROTEIN 5.8 gm/dL (6.4-8.2)
[2021-08-15] VITALS (8 sets, daily range): BP systolic 88–132; BP diastolic 45–87
[2021-08-15 06:31] LABS: BASO % 0.2 % (0.0-1.0); HEMATOCRIT 47.2 % (37.0-47.0); LYMPH % 10.5 % (27.0-41.0); MEAN CELL VOLUME 91.3 fl (81.0-99.0); MEAN CORPUSCULAR HGB 29.8 pg (27.0-31.0); MEAN CORPUSCULAR HGB CONC 32.6 g/dl (33.0-37.0); MEAN PLATELET VOLUME 12.4 fl (9.6-12.3); MONO # 0.7 10*3/uL (0.1-1.0); MONO % 6.8 % (3.0-9.0); NEUT # 8.1 10*3/uL (2.3-7.9); NEUT % 81.9 % (47.0-73.0); PLATELET COUNT AUTOMATED 149 10*3/uL (130-400); RED BLOOD COUNT 5.17 10*6/uL (4.10-5.10); RED CELL DISTRI WIDTH 13.9 % (0-14.5); WHITE BLOOD COUNT 9.9 10*3/uL (4.8-10.8)
[2021-08-15 06:37] LABS: CREATININE 2.86 mg/dL (0.55-1.02); POTASSIUM 4.8 mmol/L (3.5-5.1); TOTAL PROTEIN 5.2 gm/dL (6.4-8.2)
[2021-08-15 08:11] LABS: FREE T4 0.97 ng/dl (0.76-1.46)
[2021-08-15 08:16] LABS: THYROID STIM HORMONE (HS) 0.589 uIU/ml (0.358-4.75)
[2021-08-15] MEDS ORDERED: PREGABALIN150 MG PO (15:45)
[2021-08-15] MEDS ORDERED: MELOXICAM15 MG PO (15:46)
[2021-08-15] MEDS ORDERED: DICLOFENAC SOD75 MG PO (15:47)
[2021-08-15] MEDS ORDERED: BENZONATATE100 M1 PO (15:50)
[2021-08-16 00:27] VITALS: BP 118/58
[2021-08-16 06:04] LABS: ALBUMIN 2.1 gm/dl (3.1-4.5); CREATININE 2.3 mg/dL (0.55-1.02); IRON 94 ug/dL (50-170); LDH 256 U/L (84-246); POTASSIUM 4.4 mmol/L (3.5-5.1); TOTAL IRON BINDING CAPACITY 261 ug/dl (250-450); TOTAL PROTEIN 5.2 gm/dL (6.4-8.2)
[2021-08-16 06:25] LABS: BASO % 0.2 % (0.0-1.0); HEMATOCRIT 43.8 % (37.0-47.0); LYMPH # 1.4 10*3/uL (1.3-4.4); LYMPH % 9.2 % (27.0-41.0); MEAN CELL VOLUME 91.6 fl (81.0-99.0); MEAN CORPUSCULAR HGB 29.9 pg (27.0-31.0); MEAN CORPUSCULAR HGB CONC 32.6 g/dl (33.0-37.0); MEAN PLATELET VOLUME 12.3 fl (9.6-12.3); MONO # 1.3 10*3/uL (0.1-1.0); MONO % 8.5 % (3.0-9.0); NEUT # 12.7 10*3/uL (2.3-7.9); NEUT % 81.3 % (47.0-73.0); PLATELET COUNT AUTOMATED 188 10*3/uL (130-400); RED BLOOD COUNT 4.78 10*6/uL (4.10-5.10); RED CELL DISTRI WIDTH 14.1 % (0-14.5); WHITE BLOOD COUNT 15.6 10*3/uL (4.8-10.8)
[2021-08-16 08:00] VITALS: BP 144/46
[2021-08-16 12:00] VITALS: BP 155/79
[2021-08-16 16:00] VITALS: BP 160/60; BP 172/60
[2021-08-16 20:00] VITALS: BP 131/71
[2021-08-17] VITALS: BP 117/61
[2021-08-17 06:45] LABS: BASO % 0.1 % (0.0-1.0); HEMATOCRIT 41.2 % (37.0-47.0); LYMPH # 1.1 10*3/uL (1.3-4.4); LYMPH % 7.8 % (27.0-41.0); MEAN CELL VOLUME 90.2 fl (81.0-99.0); MEAN CORPUSCULAR HGB CONC 33.3 g/dl (33.0-37.0); MEAN PLATELET VOLUME 11.8 fl (9.6-12.3); MONO # 1.4 10*3/uL (0.1-1.0); MONO % 10.1 % (3.0-9.0); NEUT # 11.2 10*3/uL (2.3-7.9); NEUT % 81.2 % (47.0-73.0); PLATELET COUNT AUTOMATED 188 10*3/uL (130-400); RED BLOOD COUNT 4.57 10*6/uL (4.10-5.10); RED CELL DISTRI WIDTH 14.2 % (0-14.5); WHITE BLOOD COUNT 13.8 10*3/uL (4.8-10.8)
[2021-08-17 07:07] LABS: ALBUMIN 2.4 gm/dl (3.1-4.5); POTASSIUM 4.2 mmol/L (3.5-5.1)
[2021-08-17 07:10] LABS: CREATININE 1.35 mg/dL (0.55-1.02); TOTAL PROTEIN 5.2 gm/dL (6.4-8.2)
[2021-08-17 08:00] VITALS: BP 148/57
[2021-08-17] MEDS ORDERED: LOPRESSOR50 M1 PO (11:58)
[2021-08-17] MEDS ORDERED: NORVASC5 MG PO (11:58)
[2021-08-17] MEDS ORDERED: DECADRON6 M1 PO (11:58)
[2021-08-17 12:00] VITALS: BP 99/69
== END 2021-08-17 14:05 | disposition home or self-care (01) | DRG 871 ==
LOC: ED 16:25 → 4E 18:35 → EDHOLD 18:35 → 4E 19:42
PROVIDERS: Internal Medicine; Internal Medicine Hematology & Oncology; ADMIT Family Medicine; ATTEND Family Medicine
PROC: XW033E5 Introduction of Remdesivir Anti-infective into Peripheral Vein, Percutaneous Approach, New Technology Group 5 (ICD-10-PCS; principal; 2021-08-15)
DX: A41.9 Sepsis, unspecified organism (principal); U07.1 COVID-19; J12.82 Pneumonia due to coronavirus disease 2019; E43 Unspecified severe protein-calorie malnutrition; J96.01 Acute respiratory failure with hypoxia; N17.0 Acute kidney failure with tubular necrosis; I21.4 Non-ST elevation (NSTEMI) myocardial infarction; E87.1 Hypo-osmolality and hyponatremia; J44.0 Chronic obstructive pulmonary disease with (acute) lower respiratory infection; R65.20 Severe sepsis without septic shock; E11.22 Type 2 diabetes mellitus with diabetic chronic kidney disease; N18.9 Chronic kidney disease, unspecified; I12.9 Hypertensive chronic kidney disease with stage 1 through stage 4 chronic kidney disease, or unspecified chronic kidney disease; D75.1 Secondary polycythemia; E86.0 Dehydration; E11.65 Type 2 diabetes mellitus with hyperglycemia; K21.9 Gastro-esophageal reflux disease without esophagitis; E78.5 Hyperlipidemia, unspecified; F17.210 Nicotine dependence, cigarettes, uncomplicated; I95.9 Hypotension, unspecified; R00.1 Bradycardia, unspecified; Z71.6 Tobacco abuse counseling; Z90.710 Acquired absence of both cervix and uterus; Z98.891 History of uterine scar from previous surgery; Z79.51 Long term (current) use of inhaled steroids; Z79.899 Other long term (current) drug therapy; Z68.29 Body mass index [BMI] 29.0-29.9, adult

== ENCOUNTER → 2021-10-15 | Outpatient (CLI) | payer MEDICAID ==
[~2021-10-15] MED LIST changes: +BENZONATATE100 M1 PO; +CALCIUM + VITA1 EAC2 PO; +DECADRON6 M1 PO; +DICLOFENAC SOD75 MG PO; +FISH OIL + D31 EACH PO; +LOPRESSOR50 M1 PO; +MELOXICAM15 MG PO; +NORVASC5 MG PO; +POTASSIUM GLUCO90 MG PO; +PREGABALIN150 MG PO; +SYMB160 INH
== END | disposition home or self-care (01) ==
LOC: CARD 00:04
PROVIDERS: ATTEND Internal Medicine Cardiovascular Disease
DX: R77.8 Other specified abnormalities of plasma proteins (principal)

== ENCOUNTER → 2022-05-21 | Outpatient (CLI) | payer OTHER, MEDICAID | END | disposition home or self-care (01) | LOC: MAMMO 07:25 | PROVIDERS: ATTEND Nurse Practitioner | DX: Z12.31 Encounter for screening mammogram for malignant neoplasm of breast (principal) ==

== ENCOUNTER → 2022-10-31 | Outpatient (CLI) | payer OTHER, MEDICAID | END | disposition home or self-care (01) | LOC: RAD 16:19 | PROVIDERS: ATTEND Physician Assistant | DX: M47.812 Spondylosis without myelopathy or radiculopathy, cervical region (principal); M43.22 Fusion of spine, cervical region; M43.8X4 Other specified deforming dorsopathies, thoracic region; M47.816 Spondylosis without myelopathy or radiculopathy, lumbar region; M47.817 Spondylosis without myelopathy or radiculopathy, lumbosacral region ==

== ENCOUNTER 2023-04-06 15:46 | Inpatient (IN) | payer OTHER, MEDICAID ==
[~2023-04-06] VITALS: Ht 170.1 cm; Wt 85.3 kg
[2023-04-06 15:55] VITALS: BP 186/100
[2023-04-06 16:20] LABS: BASO # 0.1 10*3/uL (0.0-0.1); BASO % 0.7 % (0.0-1.0); EOS # 0.2 10*3/uL (0.0-0.4); EOS % 2.3 % (1.0-4.0); HEMATOCRIT 45.4 % (37.0-47.0); LYMPH # 2.9 10*3/uL (1.3-4.4); LYMPH % 31.5 % (27.0-41.0); MEAN CORPUSCULAR HGB 30.3 pg (27.0-31.0); MEAN CORPUSCULAR HGB CONC 34.8 g/dl (33.0-37.0); MEAN PLATELET VOLUME 9.8 fl (9.6-12.3); MONO # 0.6 10*3/uL (0.1-1.0); MONO % 6.8 % (3.0-9.0); NEUT # 5.4 10*3/uL (2.3-7.9); NEUT % 58.4 % (47.0-73.0); PLATELET COUNT AUTOMATED 240 10*3/uL (130-400); RED BLOOD COUNT 5.22 10*6/uL (4.10-5.10); RED CELL DISTRI WIDTH 11.8 % (0-14.5); WHITE BLOOD COUNT 9.2 10*3/uL (4.8-10.8)
[2023-04-06 16:29] LABS: ACT PARTIAL THROMBO TIME 27.1 SECONDS (20.0-32.1); INTERNATIONAL NORM RATIO 0.9 (2.0-3.5)
[2023-04-06 16:46] LABS: ALKALINE PHOSPHATASE 95 U/L (46-116); BUN 9 mg/dl (9-23); CHLORIDE 107 mmol/L (98-107); POTASSIUM 3.7 mmol/L (3.4-5.1); SGPT/ALT 16 U/L (10-49); TOTAL PROTEIN 7.3 gm/dL (6.0-8.0)
[2023-04-06 17:52] VITALS: BP 129/80
[2023-04-06 21:10] VITALS: BP 122/62
[2023-04-06 23:16] VITALS: BP 116/66
[2023-04-07 02:53] VITALS: BP 122/68
[2023-04-07 04:53] VITALS: BP 105/57
[2023-04-07 06:24] LABS: BASO # 0.1 10*3/uL (0.0-0.1); BASO % 0.9 % (0.0-1.0); EOS # 0.3 10*3/uL (0.0-0.4); EOS % 3.2 % (1.0-4.0); HEMATOCRIT 44.3 % (37.0-47.0); LYMPH # 2.7 10*3/uL (1.3-4.4); LYMPH % 28.3 % (27.0-41.0); MEAN CELL VOLUME 89.3 fl (81.0-99.0); MEAN CORPUSCULAR HGB CONC 33.6 g/dl (33.0-37.0); MEAN PLATELET VOLUME 10.7 fl (9.6-12.3); MONO # 0.8 10*3/uL (0.1-1.0); MONO % 8.5 % (3.0-9.0); NEUT # 5.5 10*3/uL (2.3-7.9); NEUT % 58.7 % (47.0-73.0); PLATELET COUNT AUTOMATED 231 10*3/uL (130-400); RED BLOOD COUNT 4.96 10*6/uL (4.10-5.10); RED CELL DISTRI WIDTH 11.8 % (0-14.5); WHITE BLOOD COUNT 9.4 10*3/uL (4.8-10.8)
[2023-04-07 06:53] LABS: ALKALINE PHOSPHATASE 87 U/L (46-116); BUN 13 mg/dl (9-23); CHLORIDE 105 mmol/L (98-107); FREE T4 1.23 ng/dl (0.89-1.76); POTASSIUM 4.3 mmol/L (3.4-5.1); SGPT/ALT 13 U/L (10-49); TOTAL PROTEIN 6.5 gm/dL (6.0-8.0)
[2023-04-07 07:49] LABS: VITAMIN D, 25-HYDROXY 53.3 ng/mL (30-100)
[2023-04-07] MEDS ORDERED: BENICAR20 MG PO (09:27)
[2023-04-07] MEDS ORDERED: VITAMIN D31250 MC1 PO (09:28)
[2023-04-07] MEDS ORDERED: METOPROLOL TART50 M1 PO (09:29)
[2023-04-07] MEDS ORDERED: AMLODIPINE BESY10 MG PO (09:29)
[2023-04-07] MEDS ORDERED: VITAMIN D350 MCG PO (09:30)
[2023-04-07 12:00] VITALS: BP 162/99
[2023-04-07] MEDS ORDERED: METOPROLOL SUCC50 M1 PO (14:29)
[2023-04-07] MEDS ORDERED: AMLODIPINE BESYL5 MG PO (14:29)
[2023-04-07] MEDS ORDERED: XARE20MG PO (14:29)
[2023-04-07 15:30] VITALS: BP 162/99
== END 2023-04-08 03:50 | disposition home or self-care (01) | DRG 310 ==
LOC: ED 15:46 → EDHOLD 18:08
PROVIDERS: Nurse Practitioner Family; Student in an Organized Health Care Education/Training Program; ADMIT Internal Medicine; ATTEND Internal Medicine
DX: I48.91 Unspecified atrial fibrillation (principal); E78.00 Pure hypercholesterolemia, unspecified; K21.9 Gastro-esophageal reflux disease without esophagitis; I25.10 Atherosclerotic heart disease of native coronary artery without angina pectoris; E11.65 Type 2 diabetes mellitus with hyperglycemia; F17.210 Nicotine dependence, cigarettes, uncomplicated; J44.9 Chronic obstructive pulmonary disease, unspecified; I10 Essential (primary) hypertension; I25.2 Old myocardial infarction; Z98.1 Arthrodesis status; Z90.710 Acquired absence of both cervix and uterus; Z90.722 Acquired absence of ovaries, bilateral; Z82.49 Family history of ischemic heart disease and other diseases of the circulatory system; Z80.8 Family history of malignant neoplasm of other organs or systems; Z86.16 Personal history of COVID-19; Z71.6 Tobacco abuse counseling; Z79.899 Other long term (current) drug therapy

== ENCOUNTER → 2023-05-19 | Outpatient (CLI) | payer MEDICAID ==
[~2023-05-19] MED LIST changes: +AMLODIPINE BESYL5 MG PO; +BENICAR20 MG PO; +METOPROLOL SUCC50 M1 PO; +VITAMIN D31250 MC1 PO; +VITAMIN D350 MCG PO; +XARE20MG PO
== END | disposition home or self-care (01) ==
LOC: MAMMO 14:59
PROVIDERS: ATTEND Physician Assistant
DX: Z12.31 Encounter for screening mammogram for malignant neoplasm of breast (principal)

== ENCOUNTER → 2023-05-26 | Outpatient (CLI) | payer MEDICAID ==
[~2023-05-26] MED LIST changes: +LYRICA150 M1 PO
== END | disposition home or self-care (01) ==
LOC: CT 01:52
PROVIDERS: ATTEND Internal Medicine Critical Care Medicine
DX: R91.1 Solitary pulmonary nodule (principal); J43.9 Emphysema, unspecified; Z87.891 Personal history of nicotine dependence; Z86.16 Personal history of COVID-19; Z68.29 Body mass index [BMI] 29.0-29.9, adult

== ENCOUNTER → 2023-06-01 | Day surgery (SDC) | payer MEDICAID ==
[~2023-06-01] VITALS: Ht 170.1 cm; Wt 85.3 kg
[2023-06-01 11:31] VITALS: BP 111/69
[2023-06-01 11:40] VITALS: BP 118/54
[2023-06-01 11:55] VITALS: BP 130/64
[2023-06-01 12:10] VITALS: BP 156/69
== END | disposition home or self-care (01) ==
LOC: SDC 05-29 12:30
PROVIDERS: ATTEND Surgery
DX: Z12.11 Encounter for screening for malignant neoplasm of colon (principal); Z86.010 Personal history of colon polyps; K64.8 Other hemorrhoids; I10 Essential (primary) hypertension; R06.00 Dyspnea, unspecified; E78.00 Pure hypercholesterolemia, unspecified; I48.91 Unspecified atrial fibrillation; K21.9 Gastro-esophageal reflux disease without esophagitis; F17.210 Nicotine dependence, cigarettes, uncomplicated; Z85.828 Personal history of other malignant neoplasm of skin; Z90.49 Acquired absence of other specified parts of digestive tract; Z90.710 Acquired absence of both cervix and uterus; Z98.891 History of uterine scar from previous surgery; Z98.890 Other specified postprocedural states

== ENCOUNTER → 2023-07-07 | Outpatient (CLI) | payer MEDICAID | END | disposition home or self-care (01) | LOC: CARD 13:39 | PROVIDERS: ATTEND Internal Medicine Cardiovascular Disease | DX: Z01.810 Encounter for preprocedural cardiovascular examination (principal) ==

== ENCOUNTER → 2023-07-13 | Day surgery (SDC) | payer MEDICAID ==
[~2023-07-13] VITALS: Ht 170.1 cm; Wt 85.3 kg
[~2023-07-13] MED LIST changes: +HYDROCODONE-AC1 EAC1 PO; +ONDANSETRON HYDR4 M1 PO
[2023-07-13 09:08] VITALS: BP 135/57
[2023-07-13 11:10] VITALS: BP 140/56
[2023-07-13 11:23] VITALS: BP 142/60
[2023-07-13 11:39] VITALS: BP 152/56
== END ==
LOC: SDC 06-19 10:15
PROVIDERS: ATTEND Surgery
DX: Z12.11 Encounter for screening for malignant neoplasm of colon (principal); D12.4 Benign neoplasm of descending colon; K63.5 Polyp of colon; D12.8 Benign neoplasm of rectum; I48.91 Unspecified atrial fibrillation; J44.9 Chronic obstructive pulmonary disease, unspecified; I10 Essential (primary) hypertension; I25.10 Atherosclerotic heart disease of native coronary artery without angina pectoris; E78.00 Pure hypercholesterolemia, unspecified; K21.9 Gastro-esophageal reflux disease without esophagitis; G56.00 Carpal tunnel syndrome, unspecified upper limb; F17.210 Nicotine dependence, cigarettes, uncomplicated; Z86.16 Personal history of COVID-19; Z86.010 Personal history of colon polyps; Z85.828 Personal history of other malignant neoplasm of skin; Z90.710 Acquired absence of both cervix and uterus; Z98.890 Other specified postprocedural states; Z80.3 Family history of malignant neoplasm of breast; Z80.1 Family history of malignant neoplasm of trachea, bronchus and lung; Z80.0 Family history of malignant neoplasm of digestive organs

== ENCOUNTER → 2023-09-22 | Outpatient (CLI) | payer MEDICAID | END | disposition home or self-care (01) | LOC: CT 01:22 | PROVIDERS: ATTEND Internal Medicine Critical Care Medicine | DX: R91.1 Solitary pulmonary nodule (principal); J43.9 Emphysema, unspecified; I25.10 Atherosclerotic heart disease of native coronary artery without angina pectoris; R59.9 Enlarged lymph nodes, unspecified; M47.814 Spondylosis without myelopathy or radiculopathy, thoracic region; Z68.29 Body mass index [BMI] 29.0-29.9, adult; Z87.891 Personal history of nicotine dependence; Z86.16 Personal history of COVID-19 ==